=== PATIENT | female | born 1995 | race Caucasian/White ===

== ENCOUNTER 2017-09-14 17:02 | Emergency (ER) | payer BC ==
[2017-09-14 17:33] VITALS: RESP 16
--- NOTE | 2017-09-14 19:20 | EDPHY ---
H & P Time Seen by Provider: 09/14/17 19:00 HPI/ROS: CHIEF COMPLAINT: Right wrist pain x3 days HISTORY OF PRESENT ILLNESS: 21-year-old female complaining of right wrist pain after she impacted this area against the headboard 3 days ago. Reproducible pain with range of motion. No paresthesia. Intact skin. No discoloration. PHYSICAL EXAM (Prior to examination, patient consented to physical exam, hands were washed and my usual and customary physical exam procedures followed) 1) GENERAL: Well-developed, well-nourished, alert and oriented. Appears to be in no acute distress. 2) HEAD: Normocephalic 3) HEENT: Pupils equal, round, reactive to light bilaterally. 4) LUNGS: Breathing comfortably. 5) MUSCULOSKELETAL: Tender to palpation distal radius. No deformity. Soft compartments. Normal coloration. 6) SKIN: Intact 7) VASCULAR: pulses and cap refill present are brisk 8) NEUROLOGIC: Radial, ulnar, median nerve function intact with no deficits appreciated on exam DIFFERENTIAL DIAGNOSIS: in no particular order including but not limited to fracture, sprain, compartment syndrome Procedure: Splint A Velcro volar splint was applied by ER pharmacy technician per diem. After application of the splint I returned and re-examined the patient. The splint was adequately immobilizing the joint and distal to the splint the patient's circulation and sensation were intact. Patient shows no signs of compartment syndrome. Was given orthopedic precautions. Smoking Status: Current every day smoker Constitutional: Initial Vital Signs Temperature (C) 36.8 C 09/14/17 17:31 Heart Rate 65 09/14/17 17:31 Respiratory Rate 16 09/14/17 17:31 Blood Pressure 113/62 09/14/17 17:31 O2 Sat (%) 97 09/14/17 17:31 O2 Delivery Mode Room Air Allergies/Adverse Reactions: No Known Allergies Allergy (Unverified 09/14/17 17:31) Home Medications: Medication Instructions Recorded Ibuprofen [Motrin (*)] 800 mg PO Q6 #15 tab 09/14/17 MDM/Departure - MDM Imaging Results: Imaging Impressions Wrist X-Ray 09/14/17 18:25 Impression: Negative for acute fracture. Images myself ED Course/Re-evaluation: No evidence of compartment syndrome. Neurovascularly intact. Splinted. Given orthopedic follow-up information and instructions. Care of patient under supervision of secondary supervising physician Dr Wu. - Depart Disposition: Home, Routine, Self-Care Clinical Impression: Right wrist pain Condition: Good Instructions: Wrist Injury (ED) Additional Instructions: Return to the ER immediately if you experience discoloration, have worsening pain, numbness, tingling, or any other symptoms that concern you. If you received x-rays in the emergency department today, be advised, that ligamentous , tendon, muscular, and other non-bony injury cannot be fully ruled out. Try to keep your affected extremity elevated above the level of your chest, and keep cold packs on the affected area, for the next 48 hours. Prescriptions: Ibuprofen [Motrin (*)] 800 mg PO Q6 #15 tab Referrals: Matthew North MD [Medical Doctor] - 2-3 days, call for appt.
[2017-09-14 19:36] VITALS: BP 104/84; PULSE 63; TEMP 98.1; O2SAT 94
== END 2017-09-14 19:35 | disposition home or self-care (01) ==
DX: S69.91XA Unspecified injury of right wrist, hand and finger(s), initial encounter (principal); F17.200 Nicotine dependence, unspecified, uncomplicated; W22.8XXA Striking against or struck by other objects, initial encounter
CPT/HCPCS: L3908

== ENCOUNTER 2017-10-04 14:59 | Emergency (ER) | payer BC ==
--- NOTE | 2017-10-04 16:25 | EDPHY ---
H & P Smoking Status: Current every day smoker Time Seen by Provider: 10/04/17 16:06 HPI/ROS: CHIEF COMPLAINT: Breast lump HISTORY OF PRESENT ILLNESS: 21-year-old female presents to the emergency department with concerns about a palpable breast lump. The patient states that she was in the shower and she palpated a lump to the right inferior aspect of her right breast. It was nontender. She has done breast exams intermittently in the past and she does not feel like she has noted this. Her last menstrual period was 3 weeks ago. Denies symptoms in the left breast. Denies nipple discharge. No chest pain or difficulty breathing. No fevers or chills. ROS: Denies fevers, chills, nipple discharge, symptoms in the left breast, pain or swelling in her axilla. (Christy Fowler) Past Medical/Surgical History: Orthopedic injury, asthma, ulcer (Christy Fowler) Social History: Single (Christy oFwler) Physical Exam: On examination the patient has lungs are clear to auscultation in all bryson with no wheezing, rhonchi or rales. Heart is regular rate rhythm without murmur. Examination the right foot reveals no indentation of the nipple. No nipple discharge. No redness or warmth palpated the right breast. In the inferior aspect of the right breast about the 6 o'clock position she has a smooth, oval shaped lump which is freely mobile. It is nontender. There is no evidence of fluctuance or anything to suggest an abscess. No palpable lymphadenopathy in the right axilla. No skin changes. (Christy Fowler) Constitutional: Initial Vital Signs Temperature (C) 37 C 10/04/17 15:02 Heart Rate 104 H 10/04/17 15:02 Respiratory Rate 17 10/04/17 15:02 Blood Pressure 110/74 10/04/17 15:02 O2 Sat (%) 96 10/04/17 15:02 O2 Delivery Mode Room Air Allergies/Adverse Reactions: No Known Allergies Allergy (Verified 10/04/17 15:02) Home Medications: Medication Instructions Recorded NK [No Known Home Meds] 10/04/17 MDM/Departure - [facility] ED Course/Re-evaluation: 21-year-old female presents to the emergency department regarding concerns of palpable lump in her right breast. She has no other findings on examination. It is nontender. I doubt cellulitis. I feel that this is likely fibrocystic breast changes specially given her age and characteristics of the lump. She was given primary care referral. I encouraged to have close follow-up and they may perform outpatient ultrasound. I do not think imaging studies are indicated in the emergency department. There is no signs of infection. I do not think the patient needs antibiotics. Patient was comfortable with the plan will be discharged home. (Christy Fowler) The patient was evaluated and managed by the physician public relations assistant. I have reviewed this chart and I agree with the findings and plan of care as documented , as indicated by my signature. I am the secondary supervising physician. ( Chuyita Quan) - Depart Disposition: Home, Routine, Self-Care Clinical Impression: Lump of breast, right Condition: Good Instructions: Breast Mass (ED) Additional Instructions: Follow up with a primary care doctor to recheck and discuss outpatient ultrasound if lump persists. Referrals: Anna Darden MD [[facility] [place] Primary Care Provider] - 5-7 days, call for appt. ( Primary care provider emission technician)
[2017-10-04 16:32] VITALS: BP 110/70
== END 2017-10-04 16:31 | disposition home or self-care (01) ==
DX: N63.10 Unspecified lump in the right breast, unspecified quadrant (principal); J45.909 Unspecified asthma, uncomplicated; F17.200 Nicotine dependence, unspecified, uncomplicated

== ENCOUNTER → 2018-12-21 | Outpatient (CLI) | payer BC | LOC: FIMAGING 14:11 ==